=== PATIENT | male | born 1950 | race Caucasian/White ===

== ENCOUNTER 2017-04-27 10:53 | Outpatient (CLI) | payer MEDICARE ==
--- NOTE | 2017-04-27 14:17 | ULT ---
ULTRASOUND TESTICULAR WITH DOPPLER: HISTORY: Testicular pain. COMPARISON: None. FINDINGS: There is abnormal thickening of the scrotal skin. There is small bilateral microlithiasis. There is a moderate-sized right-sided hydrocele. There is some low-grade hypervascularity in some po rtions of the testicles. No intratesticular abscess formation. IMPRESSION: 1. Abnormal thickening of the skin may be sequelae of overlying cellulitis. 2. Moderate right-sided hydrocele. 3. Foci of mildly increased vascularity to both testicles may reflect healing orchitis. POS: [facility]
== END 2017-04-27 10:54 | disposition home or self-care (01) ==
LOC: ULT 10:53
PROVIDERS: ATTEND Urology
DX: N50.82 Scrotal pain (principal); N43.3 Hydrocele, unspecified
CPT/HCPCS: 76870; 93976

== ENCOUNTER 2017-07-14 10:29 | Outpatient (CLI) | payer MEDICARE | END 2017-07-14 10:30 | disposition home or self-care (01) | LOC: BICULT 10:29 | PROVIDERS: ATTEND Internal Medicine Geriatric Medicine | DX: R10.32 Left lower quadrant pain (principal); N26.1 Atrophy of kidney (terminal) | CPT/HCPCS: 76770 ==

== ENCOUNTER 2017-07-16 12:21 | Outpatient (CLI) | payer MEDICARE | END 2017-07-16 12:22 | disposition home or self-care (01) | LOC: MWLC DTY 12:21 | PROVIDERS: ATTEND Internal Medicine Geriatric Medicine | DX: E11.9 Type 2 diabetes mellitus without complications (principal) | CPT/HCPCS: 97802 ==

== ENCOUNTER 2019-02-09 14:25 | Outpatient (CLI) | payer MEDICARE ==
[~2019-02-09 14:25] MED LIST: Magnevist 469MG/ML 20 ML VIAL ONE
--- NOTE | 2019-02-09 16:23 | MRI ---
MRI of the cervical spine with and without contrast: 02/09/2019 COMPARISON: None HISTORY: Neck, spine pain. Cervical radiculopathy TECHNIQUE: Multiplanar multisequence MR imaging of the cervical spine with and without contrast FINDINGS: The sagittal STIR imaging demonstrates no focal area of osseous marrow edema. There is mild/moderate degenerative change at the atlantoaxial interspace. The craniocervical junction and the cervicothoracic junction appear intact. There is no significant c ervical spine anterolisthesis or retrolisthesis. C2-3: Mild right facet and uncovertebral osteophyte formation. Mild right neural foraminal stenosis. No central canal or left neural foraminal stenosis. C3-4: There is bilateral facet and uncovertebral osteophyte formation, left greater than right. There is minimal disc bulge with disc desiccation. Mild central canal stenosis. There is severe left and moderate right neural foraminal stenosis. C4-5: Facet and uncovertebral osteophyte formation noted on the left with severe left neural foramina l stenosis. There is mild right neural foraminal stenosis on the basis of facet and uncovertebral osteophyte formation. There is disc space narrowing with disc desiccation and mild disc bulge causing a mild degree of central canal stenosis. C5-6: There is disc space narrowing with disc desiccation and disc bulge partially effacing the ventr al thecal sac and abutting the ventral aspect of the cord with a mild degree of central canal stenosis. Bilateral facet and uncovertebral osteophyte formation with mild bilateral neural foraminal stenosis. C6-7: There is disc space narrowing and disc desiccation with mild disc bulge and small superimposed central disc protrusion causing mild central canal stenosis. There is mild right neural foraminal stenosis on the basis of uncovertebral osteophyte formation. No significant left neural foraminal dali nosis. C7-T1: Facet and uncovertebral osteophyte formation noted on the right with severe right neural babak inal stenosis. No significant central canal or left neural foraminal stenosis. No focal area of abnormal signal intensity identified within the cervical cord. The postcontrast imaging demonstrates no abnormal enhancement involving the contents of the thecal sa c, the imaged osseous structures, or the intervertebral discs. IMPRESSION: Multilevel cervical spine degenerative change as detailed above.
== END 2019-02-09 14:26 | disposition home or self-care (01) ==
LOC: BICMRI 14:25
PROVIDERS: ATTEND Family Medicine
DX: M47.22 Other spondylosis with radiculopathy, cervical region (principal)
CPT/HCPCS: 72156; 82565; A9579

== ENCOUNTER 2019-09-16 06:22 | Outpatient (CLI) | payer MEDICARE, OTHER ==
[2019-09-16 14:08] LABS: #Eosinphils 0.1 thou/uL (0.0-0.7); #Monocytes 0.6 thou/uL (0.11-0.59); #Neutrophils 6.1 thou/uL (1.40-6.50); %Basophils 0.3 % (0.0-1.0); %Eosinophils 1.3 % (0.0-10.0); %Lymphocytes 22.5 % (21.0-51.0); %Monocytes 6.3 % (0.0-10.0); %Neutrophils 69.7 % (42.0-75.0); Hemoglobin 15.9 g/dL (14.0-18.0); Mean Corpuscular HGB CONC 33.5 g/dL (32.0-36.0); Mean Corpuscular Hemoglobin 32.6 pg (27.0-31.0); Mean Corpuscular Volume 97.1 fL (78.0-98.0); Mean Platelet Volume 7.8 fL (7.4-10.4); Platelet Count 206 thou/uL (130-400); RBC Distribution Width 12.7 % (11.5-14.5); Red Blood Cell (RBC) Count 4.88 mill/uL (4.70-6.10); White Blood Cell (WBC) Count 8.7 thou/uL (4.8-10.8)
[2019-09-16 14:09] LABS: PTT 30.2 sec (22.9-36.1); Prothrombin Time 13.1 sec (12.0-14.7)
[2019-09-16 16:21] LABS: Anion Gap 12 mmol/L (10-20); BUN (Urea Nitrogen) 19 mg/dL (8.4-25.7); Calc. Creatinine Clearance 0 mL/min (70-130); Calcium 9.6 mg/dL (7.8-10.44); Carbon Dioxide 29 mmol/L (23-31); Chloride 103 mmol/L (98-107); Estimated GFR-MDRD 62; Glucose 134 mg/dL (80-115); Potassium 4.1 mmol/L (3.5-5.1); Sodium 140 mmol/L (136-145)
[2019-09-17 12:24] LABS: SARS-CoV-2 MS2 Positive; SARS-CoV-2 N Gene Negative; SARS-CoV-2 S Gene Negative; SARS-CoV-2 orf1ab Negative
== END 2019-09-16 06:23 | disposition home or self-care (01) ==
LOC: LABBT 06:22
PROVIDERS: ATTEND Urology
DX: Z01.818 Encounter for other preprocedural examination (principal); Z11.59 Encounter for screening for other viral diseases; Z12.5 Encounter for screening for malignant neoplasm of prostate; N40.0 Benign prostatic hyperplasia without lower urinary tract symptoms; R31.29 Other microscopic hematuria; N52.9 Male erectile dysfunction, unspecified; R81 Glycosuria; I10 Essential (primary) hypertension
CPT/HCPCS: 80048; 85025; 85610; 85730; 93005; U0003; 87635; 93010

== ENCOUNTER 2019-09-21 07:13 | Observation (INO) | payer MEDICARE ==
[2019-09-21] MEDS ORDERED: Fentanyl 100 MCG/2 ML VIAL ONE (08:12)
[2019-09-21] MEDS ORDERED: Famotidine/PF 20 mg/2ml Vial ONE (08:12)
[2019-09-21] MEDS ORDERED: Midazolam HCl 2 mg/2 ml Vial ONE (08:12)
[2019-09-21] MEDS ORDERED: Ondansetron PF 4 MG/2 ML Vial ONE ×2 (08:12→11:04)
[2019-09-21] MEDS ORDERED: Levofloxacin 500 mg/D5W 100 ml Premix Bag ONE (08:17)
[2019-09-21] MEDS ORDERED: Phenazopyridine HCl 97.5 MG TABLET ONE (10:33)
[2019-09-21] MEDS ORDERED: Lidocaine 1% PF 5 ML VIAL ONE (11:04)
[2019-09-21] MEDS ORDERED: Hyoscyamine Sulfate SL 0.125 mg Tablet SL SCH (11:40)
[2019-09-21] MEDS ORDERED: Hyoscyamine Sulfate SL 0.125 mg Tablet ONE ×2 (11:41→17:16)
[2019-09-21] MEDS ORDERED: ALPRAZolam 0.5 MG TAB PO SCH (12:00)
[2019-09-21] MEDS ORDERED: Morphine 2 MG/ML VIAL ONE (12:28)
--- NOTE | 2019-09-21 12:55 | OP ---
DATE OF PROCEDURE: 09/21/2019 PREOPERATIVE DIAGNOSIS: A 69-year-old male with history of benign prostatic hyperplasia, IPSS score of 22, unable to tolerate benign prostatic hyperplasia medications. POSTOPERATIVE DIAGNOSIS: A 69-year-old male with history of benign prostatic hyperplasia, IPSS score of 22, unable to tolerate benign prostatic hyperplasia medications. PROCEDURES PERFORMED: Cystoscopy, UroLift implant x7 ANESTHESIA: LMA as TIVA was suboptimal. COMPLICATIONS: None apparent. DISPOSITION: To recovery room in stable condition. INDICATIONS FOR PROCEDURE AND HISTORY: Mr. Lopez is a pleasant 69-year-old male whom I have been following with history of BPH and prior history of elevated PSA , biopsy negative for malignancy. He presents today for UroLift as he is unable to tolerate tamsulosin due to severe nasal congestion. He continues to have severe BPH symptoms, therefore, he desires to proceed with UroLift. Risks and complications of the procedure were discussed with him in detail including, but not limited to, bleeding, pain, infection, injury to adjacent organs, chronic pain, possible secondary definitive procedure such as TURP, possible migration of the implant resulting in urolithiasis warranting treatment/removal, bleeding, pain, infection. All questions answered to his satisfaction and desired to proceed. Alternatives of the procedure including observation was also reviewed. DESCRIPTION OF PROCEDURE: After an informed consent was signed, the patient was taken to the operating room, placed in a dorsal lithotomy position. Bilateral LIV hose, SCDs, and broad-spectrum antibiotics were provided. A 21-[place] cystoscope was utilized, which demonstrated a bulbar urethral stricture, which was quite subtle and was passively dilated by passing the scope. Prostatic urethra was staged demonstrating bilobar hyperplasia with [id number] obstruction with high median bar with no evidence of intravesical median lobe. Bladder was entered demonstrating trabeculation with no bladder tumors. At this time, I transitioned to the UroLift implant cystoscopy device. The first implant was placed on the left side, care was taken to stay at least 1.5 to 2 cm proximal to the bladder neck. We deployed a total of 3 implants on the left lobe, a total of 3 implants on the right. The UroLift implants towards the proximal bladder, were staggered, as there was a subtle curtain effect. It was not an obvious cat-eye effect, however, there was a mild curtain effect. Therefore, the last two that were deployed at the bladder neck was stacked to allow the curtain effect to improve. With the proximal deployment, it did improve and we were able to create a nice anterior channel for him with resolution of lateral obstructing lobes. A total of 3 implants on the left, a total of 3 on the right. 7th urolift implant was a faulty deployment, as trigger was released too soon it is not within his prostatic urethra and removed intact.. He tolerated the procedure well and an 18-[place] Corral catheter was placed into the bladder. I will monitor the degree of his urine output for hematuria and anticipate voiding trial prior to discharge. If significant hematuria, be discharged with indwelling Corral catheter overnight. He is discharged with Azo [id number] p.r.n., ciprofloxacin for 3 days. Job ID: [id number] [facility]
[2019-09-21] MEDS ORDERED: diphenhydrAMINE 50 MG/ML VIAL IVP PRN (17:17)
[2019-09-21] MEDS ORDERED: HYDROcodone/Acetaminophen 5/325 mg Tablet PO PRN ×2 (17:17)
[2019-09-21] MEDS ORDERED: Hyoscyamine Sulfate SL 0.125 mg Tablet SL PRN (17:17)
[2019-09-21] MEDS ORDERED: Zolpidem Tartrate 5 MG TAB PO PRN (17:17)
[2019-09-21] MEDS ORDERED: hydrALAZINE 20 MG/ML VIAL SLOW IVP PRN ×2 (17:17)
[2019-09-21] MEDS ORDERED: Phenazopyridine HCl 97.5 MG TABLET PO PRN (17:17)
[2019-09-21] MEDS ORDERED: Mag-Al 1200 mg/1200 mg/30 ML UDCUP PO PRN (17:17)
[2019-09-21] MEDS ORDERED: Dextrose 5% in Water 1,000 ML IV PRN (17:20)
[2019-09-21] MEDS ORDERED: Dextrose 50% Abboject 50 ML SYRINGE SLOW IVP PRN (17:20)
[2019-09-21] MEDS ORDERED: Insulin Regular 300 UNITS/3 ML VIAL SC PRN (17:20)
[2019-09-21] MEDS ORDERED: cefTRIAXone\\ROCEPHIN 1 GM in Sodium Chloride 0.9% 100 ML IVPB SCH (18:00)
[2019-09-21] MEDS ORDERED: ALPRAZolam 0.5 MG TAB PO PRN (18:03)
[2019-09-21 18:37] VITALS: BMI 33.9
[2019-09-21] MEDS: Famotidine/PF 20 mg/2ml Vial SLOW IVP SCH (20:25)
[2019-09-21] MEDS: Docusate 100 MG CAP PO SCH (20:36)
[2019-09-21] MEDS ORDERED: Lisinopril 10 MG TAB PO SCH (21:00)
[2019-09-21] MEDS ORDERED: Gabapentin 100 MG CAP PO SCH (21:00)
[2019-09-22] MEDS: Sodium Chloride 0.9% 1,000 ML IV SCH ×2 (04:57→06:12)
[2019-09-22] MEDS ORDERED: Acetaminophen 325 MG TAB PO PRN (07:43)
--- NOTE | 2019-09-22 07:57 | PRG ---
DATE OF SERVICE: 09/22/2019 SUBJECTIVE: The patient denies fever, chills, had bladder spasm again late last night, provided hyoscyamine. His vital signs are stable. He is afebrile. CBI was held this morning demonstrating Pyridium-tinged urine with no gross hematuria. OBJECTIVE: GENERAL: No acute distress. HEART: Regular rate. LUNGS: Clear. ABDOMEN: Obese. : I did fill his bladder; however, as he had bladder spasms, Corral catheter removed for voiding trial. He was able to pass some urine, which was pink- tinged. IMPRESSION AND PLAN: Mr. Lopez is a 69-year-old male with history of BPH, unable to tolerate tamsulosin; postop day #1, status post cysto, UroLift. The surgery was uneventful. However, due to severe bladder spasms, the patient admitted overnight for observation. Voiding trial initiated. We will continue to monitor his urine output. Anticipate discharge later this afternoon. Job ID: [id number] [facility]TD[facility]
[2019-09-22 08:27] VITALS: BP 135/74; TEMP 98
[2019-09-22] MEDS: Docusate 100 MG CAP PO SCH (08:43)
[2019-09-22] MEDS: Famotidine/PF 20 mg/2ml Vial SLOW IVP SCH ×2 (08:43→09:17)
[2019-09-22] MEDS ORDERED: Zinc Sulfate 220 MG CAP PO SCH (09:00)
[2019-09-22] MEDS ORDERED: Cholecalciferol 1,000 UNITS (25 MCG) TAB PO SCH (09:00)
[2019-09-22] MEDS ORDERED: [UNRECOGNIZED DRUG - OTHER] PO SCH (09:00)
[2019-09-22] MEDS ORDERED: GLUCOSAM CHONDRO HERB PO SCH (09:00)
== END 2019-09-22 11:15 | disposition home or self-care (01) ==
LOC: SDC 07:13 → SURG B 17:17
PROVIDERS: ADMIT Urology; ATTEND Urology
PROC: 0T7D8DZ Dilation of Urethra with Intraluminal Device, Via Natural or Artificial Opening Endoscopic (ICD-10-PCS; principal; 2019-09-21)
DX: N40.1 Benign prostatic hyperplasia with lower urinary tract symptoms (principal); R31.29 Other microscopic hematuria; N52.9 Male erectile dysfunction, unspecified; I10 Essential (primary) hypertension; E11.9 Type 2 diabetes mellitus without complications; E78.00 Pure hypercholesterolemia, unspecified; K21.9 Gastro-esophageal reflux disease without esophagitis; Z88.8 Allergy status to other drugs, medicaments and biological substances; Z79.82 Long term (current) use of aspirin; Z79.84 Long term (current) use of oral hypoglycemic drugs; Z79.899 Other long term (current) drug therapy; Z87.891 Personal history of nicotine dependence
CPT/HCPCS: 82962 ×2; C9740; J2270; 36416; 51798; 96361; 96365; 96374; 96375; C1889; G0378; J0696; J1956; J2250; J2405; J3010; J3490; S0028